=== PATIENT | female | born 2000 | race Caucasian/White ===

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

== ENCOUNTER 2021-05-28 14:58 | Emergency (ER) | payer OTHER ==
--- OUTSIDE RECORDS SUMMARY | 2021-05-28 15:01 | XMS REPORT | Continuity of Care Document ---
:2000 Author Organization [facility] t Address [address] [place] [address] Care Team Providers Name Role Phone Laura Morales Attending Clinician Unavailable Physician, Primary or Family Admitting Clinician Unavailabl e Payers Payer Name Policy Type Policy Number Effective Date Expiration Date S ource Problems This patient has no known problems. Allergies, Adverse Reactions, Alerts Allergy Allergy Status Severity Reaction(s) Onset Inactive Treating Comm ents Source Name Type Date Date Clinician No Known DA Active U [facility] Allergie 11-16 [facility] 00:00: [address] No Known DA Active U [facility] Allergie 11-16 [facility] 00:00: [address] Medications This patient has no known medications. Procedures This patient has no known procedures. Encounters Start End Encounter Admission Attending Care Care Encounter Source Date/Time Date/Time Type Type Clinicians Facility Department ID 2020-11-16 2020-11-17 Emergency EM Andrew [facility] ER [id number] 2-2 [facility] 22:23:00 01:34:00 [place] [id number] [facility] Results Test Description Test Time Test Comments Results Result Comments Source DRUG OF ABUSE SCREEN URINE 2020-11-17 00:50:00 Test Item Value Reference Range Interpretation Comme nts UR COCAINE (test code = NEGATIVE NEGATIVE COCAU) UR MDMA (test code = MDMAQLU) NEGATIVE NEGATIVE UR CANNABINOIDS (test code = POSITIVE NEGATIVE A If confirmatory testing required, CANU) contact laborat ory. UR AMPHETAMINE (test code = POSITIVE NEGATIVE A If confirmatory testing required, AMPHU) contact laborat ory. UR BARBITURATE QUAL (test NEGATIVE NEGATIVE code = BARBQLU) UR BENZODIAZEPINE (test code NEGATIVE NEGATIVE = BENZU) UR OPIATES QUAL (test code = NEGATIVE NEGATIVE OPIAQLU) UR PHENCYCLIDINE (PCP) (test NEGATIVE NEGATIVE Urine Drug Abuse Screen provides code = PHENCU) preliminary r esults thatmay be confirmed by arlen colon methods (i.e., GC/MS) a t areference laboratory. Re sults of screen may not be usedin c riminal justice, job performance or professionalcre dential review, or custody issues. N egative [place] Level ng/ml ------- ----- Cocaine 3 00 Methamp hetamine (Ecstacy) 500 Cannabinoids (T HC) 50 Amphetamine 100 0 Barbitur ates 200 Benzodiazepines 200 Opiates 30 0 Phencycl idine (PCP) 25 UA RFLX MICROSCOPIC [id number] 00:39:00 Test Item Value Reference Range Interpretation Comments UA COLOR (test code = COLU) Yellow YELLOW UA APPEARANCE (test code = Ex.Turbid CLEAR APPU) UA GLUCOSE DIPSTICK (test NORMAL mg/dL NEGATIVE code = DGLUU) UA BILIRUBIN DIPSTICK (test NEGATIVE NEGATIVE code = BILU) UA KETONE DIPSTICK (test TRACE mg/dL NEGATIVE code = KETU) UA SPECIFIC GRAVITY (test 1.030 1.001-1.035 N code = SGU) UA BLOOD DIPSTICK (test code 2+ NEGATIVE A = LASHON) UA PH DIPSTICK (test code = 6.5 5.5-7.0 N CARRILLO) UA PROTEIN DIPSTICK (test 70 mg/dL NEGATIVE A code = PROU) UA UROBILINOGEN DIPSTICK 3 mg/dL NORMAL A (test code = URO) UA NITRITE DIPSTICK (test 2+ NEGATIVE A code = ANDREW) UA LEUKOCYTE ESTERASE 2+ NEGATIVE A DIPSTICK (test code = LEUU) UA COMMENT (test code = VOLUME 10-12 ML COMU) URINE SPECIMEN DESCRIPTION Clean Catch (test code = UASPEC) UA WBC (test code = WBCU) > 50 #/HPF 0-10 A UA SQUAMOUS CELLS (test code > 100 #/LPF <100 A = SQU) UA CULTURE NEEDED? (test Criteria not met code = UACULT) Indication for culture: Suprapubic PainURINE SOURCE: Clean CatchUA [id number] 00:39:00 Test Item Value Reference Range Interpretation Comments UA RBC (test code = RBCU) >50 #/HPF NONE SEEN A UA BACTERIA (test code = BACU) 1+ HPF NONE SEEN UA MUCUS (test code = MUCU) 3+ #/lpf NONE SEEN Indication for culture: Suprapubic PainURINE SOURCE: Clean CatchUA RFLX MICROSCOPIC [id number] 00:37:00 Test Item Value Reference Range Interpretation Comments UA COLOR (test code = COLU) Yellow YELLOW UA APPEARANCE (test code = Ex.Turbid CLEAR APPU) UA GLUCOSE DIPSTICK (test NORMAL mg/dL NEGATIVE code = DGLUU) UA BILIRUBIN DIPSTICK (test NEGATIVE NEGATIVE code = BILU) UA KETONE DIPSTICK (test code TRACE mg/dL NEGATIVE = KETU) UA SPECIFIC GRAVITY (test 1.030 1.001-1.035 N code = SGU) UA BLOOD DIPSTICK (test code 2+ NEGATIVE A = LASHON) UA PH DIPSTICK (test code = 6.5 5.5-7.0 N CARRILLO) UA PROTEIN DIPSTICK (test 70 mg/dL NEGATIVE A code = PROU) UA UROBILINOGEN DIPSTICK 3 mg/dL NORMAL A (test code = URO) UA NITRITE DIPSTICK (test 2+ NEGATIVE A code = ANDREW) UA LEUKOCYTE ESTERASE 2+ NEGATIVE A DIPSTICK (test code = LEUU) UA COMMENT (test code = COMU) VOLUME 10-12 ML URINE SPECIMEN DESCRIPTION Clean Catch (test code = UASPEC) UA WBC (test code = WBCU) #/hpf <10 UA SQUAMOUS CELLS (test code #/lpf <100 = SQU) UA CULTURE NEEDED? (test code = UACULT) Indication for culture: Suprapubic PainURINE SOURCE: Clean CatchUA [id number] 00:37:00 Test Item Value Reference Range Interpretation Comments UA RBC (test code = RBCU) #/HPF NONE SEEN Indication for culture: Suprapubic PainURINE SOURCE: Clean CatchUA RFLX MICROSCOPIC [id number] 00:37:00 Test Item Value Reference Range Interpretation Comments UA COLOR (test code = COLU) Yellow YELLOW UA APPEARANCE (test code = Ex.Turbid CLEAR APPU) UA GLUCOSE DIPSTICK (test NORMAL mg/dL NEGATIVE code = DGLUU) UA BILIRUBIN DIPSTICK (test NEGATIVE NEGATIVE code = BILU) UA KETONE DIPSTICK (test code TRACE mg/dL NEGATIVE = KETU) UA SPECIFIC GRAVITY (test 1.030 1.001-1.035 N code = SGU) UA BLOOD DIPSTICK (test code 2+ NEGATIVE A = LASHON) UA PH DIPSTICK (test code = 6.5 5.5-7.0 N CARRILLO) UA PROTEIN DIPSTICK (test 70 mg/dL NEGATIVE A code = PROU) UA UROBILINOGEN DIPSTICK 3 mg/dL NORMAL A (test code = URO) UA NITRITE DIPSTICK (test 2+ NEGATIVE A code = ANDREW) UA LEUKOCYTE ESTERASE 2+ NEGATIVE A DIPSTICK (test code = LEUU) UA COMMENT (test code = COMU) VOLUME 10-12 ML URINE SPECIMEN DESCRIPTION Clean Catch (test code = UASPEC) UA WBC (test code = WBCU) #/hpf <10 UA SQUAMOUS CELLS (test code #/lpf <100 = SQU) UA CULTURE NEEDED? (test code = UACULT) Indication for culture: Suprapubic PainURINE SOURCE: Clean CatchUA [id number] 00:37:00 Test Item Value Reference Range Interpretation Comments UA RBC (test code = RBCU) #/HPF NONE SEEN Indication for culture: Suprapubic PainURINE SOURCE: Clean CatchBASIC METABOLIC [id number] 23:30:00 Test Item Value Reference Range Interpretation Comments SODIUM (test code = 138 MMOL/L 133-145 N NA) POTASSIUM (test 3.5 MMOL/L 3.6-5.2 L code = K) CHLORIDE (test code 99 MMOL/L 100-108 L = CL) CARBON DIOXIDE 31 MMOL/L 22-32 N (test code = CO2) GLUCOSE (test code 106 MG/DL 65-99 H Results o f this = GLU) assay method ma y be falsely depressed orelevated if patient is taki ng sulfasalazine. BLOOD UREA NITROGEN 14 MG/DL 6-20 N (test code = BUN) GLOMERULAR Unable to 71-165 N Unable to FILTRATION RATE calculate calculate eG FR; no (test code = GFR) race enter ed to medical record.Reportin g units: mL/min/1.73m\S\ 2 (Modified MDRD Formula) CREATININE (test 0.70 MG/DL 0.60-1.00 N code = CREAT) CALCIUM (test code 9.0 MG/DL 8.7-10.5 N = CA) HEPATIC FUNCTION [id number] 23:30:00 Test Item Value Reference Range Interpretation Comments TOTAL PROTEIN (test 8.5 G/DL 6.4-8.2 H code = PROT) ALBUMIN (test code = 3.1 G/DL 3.4-5.0 L ALB) GLOBULIN (test code = 5.4 G/DL 1.5-3.8 H GLOB) ALBUMIN/GLOBULIN RATIO 0.6 1.1-2.2 L (test code = A/G) BILIRUBIN TOTAL (test 0.2 MG/DL 0.0-1.0 N code = BILT) BILIRUBIN DIRECT (test 0.1 MG/DL 0.0-0.3 N code = BILD) BILIRUBIN INDIRECT 0.1 MG/DL 0.0-0.7 N (test code = BILIND) SGOT/AST (test code = 45 Units/L 15-37 H Result s of this AST) assay method ma y be falsely depress ed orelevated if patient is taki ng sulfasalazine. SGPT/ALT (test code = 83 Units/L 30-65 H Result s of this ALT) assay method ma y be falsely depress ed orelevated if patient is taki ng sulfasalazine. ALKALINE PHOSPHATASE 164 Units/L 50-136 H TOTAL (test code = ALKP) [id number] 23:30:00 Test Item Value Reference Range Interpretation Comments LIPASE (test code = LIP) 87 Units/L 73-393 N HCG SERUM [id number] 23:09:00 Test Item Value Reference Range Interpretation Comments HCG SERUM QUAL NEGATIVE NEGATIVE False negativ es may occur (test code = when levels of hCGare below HCGQL) 10 mIU/ml. When is still suspec leonel, a new specimenshould be obtained after 48 hours and re-tested.If wa iting 48 hours is not me dically advisable,the t est result should be confi rmed using aquantitative h CG assay. CBC W/AUTO [id number] 23:08:00 Test Item Value Reference Range Interpretation Comments WHITE BLOOD CELL (test 15.74 x10 3/uL 4.80-10.80 H Res ults called to code = WBC) and read back Yina SOMMER;4838, 11/16/20, D.[id number].JP1. RED BLOOD CELL (test 4.58 x10 6/uL 4.2-5.4 N code = RBC) HEMOGLOBIN (test code = 12.9 G/DL 12.0-16.0 N HGB) HEMATOCRIT (test code = 40.2 % 37-47 N HCT) MEAN CELL VOLUME (test 87.8 FL 81-99 N code = MCV) MEAN CELL HGB (test 28.2 PG 27-31 N code = MCH) MEAN CELL HGB 32.1 G/DL 33-37 L CONCENTRATION (test code = MCHC) RED CELL DISTRIBUTION 13.3 % 11.5-14.5 N WIDTH (test code = RDW) PLATELET COUNT (test 442 x10 3/uL 150-450 N code = PLT) MEAN PLATELET VOLUME 8.6 FL 7.4-10.4 N (test code = MPV) NEUTROPHIL % (test code 73.0 % 42-86 N = NT%) IMMATURE GRANULOCYTE % 0.4 % 0.0-2.0 N (test code = IG%) LYMPHOCYTE % (test code 18.0 % 24-44 L = LY%) MONOCYTE % (test code = 6.6 % 0.0-4.0 H MO%) EOSINOPHIL % (test code 1.6 % 0.0-2.7 N = EO%) BASOPHIL % (test code = 0.4 % 0.0-0.5 N BA%) NUCLEATED RBC % (test 0.0 % 0.0-0.0 N code = NRBC%) NEUTROPHIL # (test code 11.47 x10 3/uL 1.8-7.7 H = NT#) IMMATURE GRANULOCYTE # 0.07 x10 3/uL 0.00-0.03 H (test code = IG#) LYMPHOCYTE # (test code 2.84 x10 3/uL 1.0-4.8 N = LY#) MONOCYTE # (test code = 1.04 x10 3/uL 0.0-0.8 H MO#) EOSINOPHIL # (test code 0.25 x10 3/uL 0.0-0.5 N = EO#) BASOPHIL # (test code = 0.07 x10 3/uL 0.0-0.2 N BA#) NUCLEATED RBC # (test 0.0 X10 3/uL 0.0-0.2 N code = NRBC#)
--- NOTE | 2021-05-28 15:53 | ER ---
Nurse's Notes [facility] Name: Arvin Flor Age: 20 yrs Sex: Female : 2000 Arrival Date: 05/28/2021 Time: 15:00 Bed 12 Private MD: Diagnosis: Encounter for screening for infections with a predominantly sexual mode of transmission Presentation: 05/28 15:18 Chief complaint: Patient states: "My boyfriend thinks I have an STD and I'm here so I vg1 can get proof that I dont" Denies vaginal pain, itching, or discharge. Coronavirus screen: Vaccine status: Patient reports being unvaccinated. Client denies travel out of the [place] in the last 14 days. At this time, the client does not indicate any symptoms associated with coronavirus-19. Ebola Screen: Patient negative for fever greater than or equal to 101.5 degrees Fahrenheit, and additional compatible Ebola Virus Disease symptoms. Initial Sepsis Screen: Does the patient meet any 2 criteria? No. Patient's initial sepsis screen is negative. Does the patient have a suspected source of infection? No. Patient's initial sepsis screen is negative. Risk Assessment: Do you want to hurt yourself or someone else? Patient reports no desire to harm self or others. Onset of symptoms was May 28, 2021. 15:18 Method Of Arrival: Ambulatory vg1 15:18 Acuity: MARIPOSA 4 vg1 Triage Assessment: 15:21 General: Appears in no apparent distress. comfortable, Behavior is calm, cooperative. vg1 Pain: Denies pain. : Denies pain vaginal itching. 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 - Social history:: Smoking status: Patient reports the use of cigarette tobacco products, smokes one-half pack cigarettes per day, Patient uses street drugs, Methamphetamine (Meth) states last time was 'about 3-4 months ago'. Screenin:50 Abuse screen: Denies threats or abuse. Denies injuries from another. Nutritional iw screening: No deficits noted. Tuberculosis screening: No symptoms or risk factors identified. Fall Risk None identified. Assessment: 15:40 General: Appears in no apparent distress. Behavior is calm, cooperative. Pain: Denies iw pain. Neuro: Level of Consciousness is awake, alert, obeys commands, Oriented to person, place, time, situation, Moves all extremities. Full function. : No signs and/or symptoms were reported regarding the genitourinary system. Vital Signs: 15:18 BP 125 / 72; Pulse 98; Resp 16; Temp 98.1; Pulse Ox 99% ; Weight 56.7 kg; Height 5 ft. vg1 3 in. (160.02 cm); Pain 0/10; 15:18 Body Mass Index 22.14 (56.70 kg, 160.02 cm) vg1 ED Course: 15:00 Patient arrived in ED. as 15:21 Triage completed. vg1 15:21 Arm band placed on. vg1 15:39 Jana Singh, RN is Primary Nurse. iw 15:[address] PA is PHCP. cp 15:40 Cheyenne Nathan MD is Attending Physician. cp 15:40 Patient has correct armband on for positive identification. iw 15:52 No provider procedures requiring assistance completed. Patient did not have IV access iw during this emergency room visit. Administered Medications: No medications were administered Outcome: 15:50 Medical screen evaluation completed per provider. Patient declined treatment. iw 15:53 Discharge ordered by MD. cp 15:53 Condition: unchanged iw 15:53 Following a medical screening exam, the patient was provided information regarding alternative care sites and resources available per registration personnel. 16:03 Patient left the ED. cp Signatures: Frances Thompson as Jana Singh, RN RN iw Marlon Lane PA PA cp Garcia, Victoria, RN RN vg1 Corrections: (The following items were deleted from the chart) 15:22 15:21 Home Meds: aspirin 81 mg Oral chew 1 tab as needed; vg1 vg1
--- NOTE | 2021-05-28 15:53 | EDPHYS ---
Physician Documentation [facility] Name: Arvin Flor Age: 20 yrs Sex: Female : 2000 Arrival Date: 05/28/2021 Time: 15:00 Bed 12 Private MD: ED Physician Cheyenne Nathan HPI: 05/28 15:45 This 20 yrs old Female presents to ER via Ambulatory with complaints of STD Exposure. cp 15:45 Patient presents to the emergency department with request to be tested for STDs. cp Patient reports boyfriend wants her to be tested for STDs. Patient denies any current symptoms. Patient denies any urinary symptoms.. 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 - Social history:: Smoking status: Patient reports the use of cigarette tobacco products, smokes one-half pack cigarettes per day, Patient uses street drugs, Methamphetamine (Meth) states last time was 'about 3-4 months ago'. ROS: 15:51 All other systems are negative. cp Exam: 15:51 Constitutional: The patient appears in no acute distress, alert, awake, comfortable, cp well developed, well nourished. 15:51 Cardiovascular: Rate: normal. 15:51 Abdomen/GI: Exam negative for discomfort, distension, guarding, Inspection: abdomen cp appears normal. Vital Signs: 15:18 BP 125 / 72; Pulse 98; Resp 16; Temp 98.1; Pulse Ox 99% ; Weight 56.7 kg; Height 5 ft. vg1 3 in. (160.02 cm); Pain 0/10; 15:18 Body Mass Index 22.14 (56.70 kg, 160.02 cm) vg1 MDM: 15:53 Patient medically screened. cp 15:53 Data reviewed: vital signs, nurses notes. cp 15:53 Counseling: I had a detailed discussion with the patient and/or guardian regarding: the cp need for outpatient follow up, for definitive care, a family practitioner. Administered Medications: No medications were administered Disposition: 16:00 Chart complete. cp 18:11 Co-signature as Attending Physician, Cheyenne Nathan MD. ma2 18:12 PA/EAR NOSE THROAT PHYSICIAN's history reviewed, patient interviewed, and examined. I agree with assessment ma2 and care plan and confirm the diagnosis (es) above. Disposition Summary: 05/28/21 15:53 Discharge Ordered Location: Home as Medical Screen cp Problem: new cp Symptoms: are unchanged cp Condition: Stable cp Diagnosis - Encounter for screening for infections with a predominantly sexual mode of cp transmission Followup: cp - With: Private Physician - When: 1 - 2 days - Reason: Recheck today's complaints Discharge Instructions: - Discharge Summary Sheet cp - Health Maintenance, Female cp Forms: - Medication Reconciliation Form cp - Thank You Letter cp - Antibiotic Education cp - Prescription Opioid Use cp Signatures: Marlon Lane, ALISON PA cp Cheyenne Nathan MD MD ma2 Coty Link RN RN vg1 Corrections: (The following items were deleted from the chart) 15:22 15:21 Home Meds: aspirin 81 mg Oral chew 1 tab as needed; vg1 vg1
[2021-05-28 16:10] VITALS: BP 125/72; TEMP 98.1; O2SAT 99
== END 2021-05-28 16:03 | disposition home or self-care (01) ==
LOC: ER 14:58
DX: Z11.3 Encounter for screening for infections with a predominantly sexual mode of transmission (principal)
CPT/HCPCS: 99281

== ENCOUNTER 2023-03-21 11:01 | Emergency (ER) | payer OTHER ==
--- OUTSIDE RECORDS SUMMARY | 2023-03-21 11:04 | XMS REPORT | Continuity of Care Document ---
:2000 Author Organization [facility] t Address [address] [place] [address] [address] [place] [address] Care Team Providers Name Role Phone Beto Morales Attending Clinician Unavailable Physician, No Primary or Family Admitting Clinician Unavaila ble Payers Payer Name Policy Type Policy Number Effective Date Expiration Date S ource Problems This patient has no known problems. Allergies, Adverse Reactions, Alerts Allergy Allergy Status Severity Reaction(s) Onset Inactive Treating Comm ents Source Name Type Date Date Clinician No Known DA Active U [facility] Allergie 11-16 [facility] 00:00: [address] No Known DA Active U [facility] Allergie 11-16 [facility] 00:00: [address] Medications This patient has no known medications. Procedures This patient has no known procedures. Encounters Start End Encounter Admission Attending Care Care Encounter Source Date/Time Date/Time Type Type Clinicians Facility Department ID 2020-11-16 2020-11-17 Emergency EM LISA Morales ER [id number] 22:23:00 01:34:00 Beto Nava [facility] Results Test Description Test Time Test Comments [...] methods (i.e., GC/MS) a t areference laboratory. Res ults of screen may not be usedin c riminal justice, job performance or professionalcre dential review, or custody issues. Negative [place] Level ng/ml ------- ----- Cocaine 300 Methampheta mine (Ecstacy) 500 Cannabinoids (T HC) 50 Amphetamine 1000 Barbiturat es 200 Benzodiazepines 200 Opiates 300 Phencyclidine ( PCP) 25 UA RFLX MICROSCOPIC [id number] 00:39:00 Test Item Value Reference Range Interpretation [...] for culture: Suprapubic PainURINE SOURCE: Clean CatchUA MICROSCOPIC 2020-11-17 00:39:00 Test Item Value Reference Range Interpretation Comments UA RBC (test code = RBCU) >50 #/HPF NONE SEEN A UA BACTERIA (test code = BACU) 1+ HPF NONE SEEN UA MUCUS (test code = MUCU) 3+ #/lpf NONE SEEN Indication for culture: Suprapubic PainURINE SOURCE: Clean CatchUA RFLX MICROSCOPIC [id number] 00:37:00 Test Item Value Reference Range Interpretation [...] for culture: Suprapubic PainURINE SOURCE: Clean CatchUA MICROSCOPIC 2020-11-17 00:37:00 Test Item Value Reference Range Interpretation Comments UA RBC (test code = RBCU) #/HPF NONE SEEN Indication for culture: Suprapubic PainURINE SOURCE: Clean CatchUA RFLX MICROSCOPIC [id number] 00:37:00 Test Item Value Reference Range Interpretation [...] for culture: Suprapubic PainURINE SOURCE: Clean CatchUA MICROSCOPIC 2020-11-17 00:37:00 Test Item Value Reference Range Interpretation Comments UA RBC (test code = RBCU) #/HPF NONE SEEN Indication for culture: Suprapubic PainURINE SOURCE: Clean CatchBASIC METABOLIC [id number] 23:30:00 Test Item Value Reference Range Interpretation [...] MG/DL 8.7-10.5 N = CA) HEPATIC FUNCTION [id number] 23:30:00 Test Item Value Reference Range Interpretation [...] 50-136 H TOTAL (test code = ALKP) [id number] 23:30:00 Test Item Value Reference Range Interpretation Comments LIPASE (test code = LIP) 87 Units/L 73-393 N HCG SERUM [id number] 23:09:00 Test Item Value Reference Range Interpretation [...] using aquantitative h CG assay. CBC W/AUTO [id number] 23:08:00 Test Item Value Reference Range Interpretation Comments WHITE BLOOD CELL (test 15.74 x10 3/uL 4.80-10.80 H Res ults called to code = WBC) and read back Yina SOMMER;2308, 11/16/20, [id number].[id number]. RED BLOOD CELL (test 4.58 [...]
--- NOTE | 2023-03-21 11:13 | ER ---
Nurse's Notes [facility] Name: Arvin Flor Age: 22 yrs Sex: Female : 2000 Arrival Date: 03/21/2023 Time: 11:01 Bed IW1 Private MD: Diagnosis: Local infection of the skin and subcutaneous tissue, unspecified Presentation: 03/21 11:09 Chief complaint: Patient states: Sore's to arms, legs, face for 2 weeks. Coronavirus ld1 screen: At this time, the client does not indicate any symptoms associated with coronavirus-19. Ebola Screen: No symptoms or risks identified at this time. Initial Sepsis Screen: Does the patient meet any 2 criteria? No. Patient's initial sepsis screen is negative. Does the patient have a suspected source of infection? No. Patient's initial sepsis screen is negative. Risk Assessment: Do you want to hurt yourself or someone else? Patient reports no desire to harm self or others. Onset of symptoms was March 21, 2023. 11:09 Method Of Arrival: Ambulatory ld1 11:09 Acuity: MARIPOSA 4 ld1 Triage Assessment: 11:10 General: Appears in no apparent distress. comfortable, Behavior is calm, cooperative, ld1 appropriate for age. Pain: Denies pain. EENT: No signs and/or symptoms were reported regarding the EENT system. Neuro: Level of Consciousness is awake, alert, obeys commands, Oriented to person, place, time, situation. Cardiovascular: Capillary refill < 3 seconds Patient's skin is warm and dry. Respiratory: Airway is patent Respiratory effort is even, unlabored. GI: Abdomen is flat, non-distended. : No signs and/or symptoms were reported regarding the genitourinary system. Derm: Wound noted face, back, right hand, left hand, right arm, left arm, right leg and left leg. Musculoskeletal: No signs and/or symptoms reported regarding the musculoskeletal system. 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 - Social history:: Smoking status: Patient denies any tobacco usage or history of. Patient/guardian denies using alcohol. Screenin:11 [facility] ED Fall Risk Assessment (Adult) History of falling in the last 3 months, ld1 including since admission No falls in past 3 months (0 pts). Abuse screen: Denies threats or abuse. Denies injuries from another. Nutritional screening: No deficits noted. Tuberculosis screening: No symptoms or risk factors identified. Assessment: 11:11 Reassessment: See triage assessment. ERP in triage assessing patient. Pt reports being ld1 . Vital Signs: 11:09 BP 142 / 89; Pulse 92; Resp 18; Temp 98.3(O); Pulse Ox 100% on R/A; Weight 48.08 kg; ld1 Height 5 ft. 3 in. ; Pain 0/10; 11:09 Body Mass Index 18.78 (48.08 kg, 160.02 cm) ld1 11:09 Pain Scale: Adult 1 ED Course: 11:06 Patient arrived in ED. 5 11:06 [facility] 11:06 Marlon Coker MD is Attending Physician. [facility] 11:10 Triage completed. ld1 11:10 Arm band placed on right wrist. ld1 11:11 Patient has correct armband on for positive identification. Call light in reach. Pulse ld1 ox on. NIBP on. Door closed. Noise minimized. Warm blanket given. 11:11 No provider procedures requiring assistance completed. Patient did not have IV access ld1 during this emergency room visit. 11:18 Nadeen Romero, LEEROY is Primary Nurse. ld1 Administered Medications: No medications were administered Medication: 11:11 VIS not applicable for this client. ld1 Outcome: 11:12 Discharge ordered by . [facility] 11:18 Discharged to home ambulatory, ld1 11:18 Condition: stable 11:18 Discharge instructions given to patient, Instructed on discharge instructions, follow up and referral plans. medication usage, Demonstrated understanding of instructions, follow-up care, medications, Prescriptions given X 2, 11:18 Patient left the ED. ld1 Signatures: Nadeen Romero RN RN ld1 Vane Faria FNP FNP [facility] Frieda Swanson mg5
--- NOTE | 2023-03-21 11:13 | EDPHYS ---
Physician Documentation [facility] Name: Arvin Flor Age: 22 yrs Sex: Female : 2000 Arrival Date: 03/21/2023 Time: 11:01 Bed IW1 Private MD: ED Physician Marlon Coker HPI: 03/21 11:10 This 22 yrs old Female presents to ER via Ambulatory with complaints of Face/Hands/Legs jh7 infection. 11:10 Onset: The symptoms/episode began/occurred 2 week(s) ago. Associated signs and jh7 symptoms: Pertinent negatives: abdominal pain, chest pain, dysuria, fever, shortness of breath, sore throat, vomiting. 22-year-old female presents for possible staph infection. Reports that she is noticed red, scab-like lesions on her face, arms, back, and legs. Denies any past medical history but states that she is 8 weeks .. 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 - Social history:: Smoking status: Patient denies any tobacco usage or history of. Patient/guardian denies using alcohol. ROS: 11:10 Constitutional: Negative for fever, chills, and weight loss, Eyes: Negative for injury, jh7 pain, redness, and discharge, Neck: Negative for injury, pain, and swelling, Cardiovascular: Negative for chest pain, palpitations, and edema, Respiratory: Negative for shortness of breath, cough, wheezing, and pleuritic chest pain, Abdomen/GI: Negative for abdominal pain, nausea, vomiting, diarrhea, and constipation, Back: Negative for injury and pain, MS/Extremity: Negative for injury and deformity, Neuro: Negative for headache, weakness, numbness, tingling, and seizure, 11:10 Skin: Positive for cellulitis, 11:10 All other systems are negative, Exam: 11:10 Constitutional: This is a well developed, well nourished patient who is awake, alert, jh7 and in no acute distress. Head/Face: Normocephalic, atraumatic. Eyes: Pupils equal round and reactive to light, extra-ocular motions intact. Lids and lashes normal. Conjunctiva and sclera are non-icteric and not injected. Cornea within normal limits. Periorbital areas with no swelling, redness, or edema. Cardiovascular: Regular rate and rhythm with a normal S1 and S2. No gallops, murmurs, or rubs. Normal PMI, no JVD. No pulse deficits. Respiratory: Lungs have equal breath sounds bilaterally, clear to auscultation and percussion. No rales, rhonchi or wheezes noted. No increased work of breathing, no retractions or nasal flaring. MS/ Extremity: Pulses equal, no cyanosis. Neurovascular intact. Full, normal range of motion. Neuro: Awake and alert, GCS 15, oriented to person, place, time, and situation. Motor strength 5/5 in all extremities. Sensory grossly intact. Normal gait. 11:10 Skin: abscess, that is small, approximately 1 cm(s), with induration, Many small, abscesses/areas of cellulitis, on arms, face, back, and legs. There is no fluctuance but areas are indurated and tender to palpation., Vital Signs: 11:09 BP 142 / 89; Pulse 92; Resp 18; Temp 98.3(O); Pulse Ox 100% on R/A; Weight 48.08 kg; ld1 Height 5 ft. 3 in. ; Pain 0/10; 11:09 Body Mass Index 18.78 (48.08 kg, 160.02 cm) ld1 11:09 Pain Scale: Adult ld1 MDM: 11:06 Patient medically screened. [facility] 11:10 Differential diagnosis: Abscess, staph infection, cellulitis. Data reviewed: vital [facility] signs, nurses notes. Care significantly affected by the following chronic conditions: Suspected IV drug use with possible "skin popping". Counseling: I had a detailed discussion with the patient and/or guardian regarding the historical points, exam findings, and any diagnostic results supporting the discharge/admit diagnosis, to return to the emergency department if symptoms worsen or persist or if there are any questions or concerns that arise at home. ED course: Clindamycin prescribed rather than Bactrim due to the patient being 8 weeks .. Administered Medications: No medications were administered Disposition Summary: 10/05/23 11:12 Discharge Ordered Notes: Location: Home [facility] Problem: new [facility] Symptoms: are unchanged [facility] Condition: Stable [facility] Diagnosis - Local infection of the skin and subcutaneous tissue, unspecified [facility] Followup: [facility] - With: Private Physician - When: 2 - 3 days - Reason: Recheck today's complaints Discharge Instructions: - Discharge Summary Sheet [facility] - Cellulitis, Adult [facility] Forms: - Medication Reconciliation Form [facility] - Thank You Letter [facility] - Antibiotic Education [facility] - Patient Portal Instructions [facility] - Leadership Thank You Letter [facility] Prescriptions: - mupirocin 2 % Topical ointment - apply 1 application TOPICAL route 3 times per day for 7 days; 30 gram; Refills: [facility] 0, Product Selection Permitted - Clindamycin HCl 300 mg Oral Capsule - take 1 capsule ORAL route every 6 hours for 10 days; 40 capsule; Refills: 0, jh7 Product Selection Permitted Signatures: Nadeen Romero RN RN ld1 Vane Faria FNP PASTOR [facility]
[2023-03-21 11:23] VITALS: BP 142/89; TEMP 98.3; O2SAT 100
== END 2023-03-21 11:18 | disposition home or self-care (01) ==
LOC: ER 11:01
DX: O99.711 Diseases of the skin and subcutaneous tissue complicating pregnancy, first trimester (principal); L03.818 Cellulitis of other sites; Z3A.08 8 weeks gestation of pregnancy
CPT/HCPCS: 99283

== ENCOUNTER → 2023-06-25 | Emergency (ER) | payer OTHER ==
--- OUTSIDE RECORDS SUMMARY | 2023-06-25 11:36 | XMS REPORT | Continuity of Care Document ---
Author Name Unknown Address [address] [place] [address] [address] [employer] Address [address] [place] [address]. [address] [place] [address] Care Team Providers Care [employer] Name Role Phone MATTHEW RAPHAEL Primary Care Physician COURTNEY Gutierres Attending Clinician Unavaila ble Allergies, Adverse Reactions, Alerts Allergy Name Allergy Type Status Severity Reaction(s) Onset Date Inactive Date Treating Clinician Comments Source NO KNOWN ALLERGIE S Drug Class Active [facility] Encounters Start Date/Time End Date/Time Encounter Type Admission Type Attending Clinicians Care Facility Care Department Encounter ID Source 2023-04-16 13:45:00 2023-04-16 13:45:00 Outpatient COURTNEY GARCIA [facility] [id number] [facility]
[2023-06-25 12:20] LABS: Transitional Epithelial <5 /HPF (None Seen); Urine Bacteria 20-50 /HPF (<20); Urine Bilirubin NEGATIVE (Negative); Urine Blood Negative (Negative); Urine Clarity Clear (Clear); Urine Color Yellow (Yellow); Urine Glucose NEGATIVE (Negative); Urine Mucus Slight /HPF (None Seen); Urine Protein TRACE (Negative); Urine Urobilinogen 1+ (Normal)
--- NOTE | 2023-06-25 12:51 | ER ---
Nurse's Notes [facility] Name: Arvin Flor Age: 22 yrs Sex: Female : 2000 Arrival Date: 06/25/2023 Time: 11:33 Bed IW1 Private MD: Diagnosis: Encounter for test, result positive;UTI/ Urinary tract infection, site not specified Presentation: 06/25 11:48 Chief complaint: Patient states: Positive test in January. Needs proof of ll1 for insurance reasons. G3, P1. No pain or bleeding. Coronavirus screen: Client denies travel out of the [place] in the last 14 days. At this time, the client does not indicate any symptoms associated with coronavirus-19. Ebola Screen: Patient denies travel to an Ebola-affected area in the 21 days before illness onset. Initial Sepsis Screen: Does the patient meet any 2 criteria? No. Patient's initial sepsis screen is negative. Does the patient have a suspected source of infection? No. Patient's initial sepsis screen is negative. Risk Assessment: Do you want to hurt yourself or someone else? Patient reports no desire to harm self or others. Onset of symptoms was January 15, 2023. 11:48 Method Of Arrival: Ambulatory ll1 11:48 Acuity: MARIPOSA 4 ll1 Triage Assessment: 11:48 General: Appears in no apparent distress. Behavior is calm, cooperative, appropriate ll1 for age, Reports needing confirmation. Pain: Denies pain. GI: No deficits noted. Historical: - Allergies: 11:45 No Known Allergies; ll1 - PMHx: 11:45 None; ll1 - PSHx: 11:45 Cholecystectomy; ll1 - Immunization history:: Adult Immunizations up to date. - Social history:: Smoking status: Patient denies any tobacco usage or history of. Screenin:10 [facility] ED Fall Risk Assessment (Adult) Score/Fall Risk Level 0 - 2 = Low Risk ll1 Oriented to surroundings, Maintained a safe environment, Educated pt \T\ family on fall prevention, incl call for assistance when getting out of bed, Hourly rounding (assess needs \T\ fall precautionary measures) done. Abuse screen: Denies threats or abuse. Nutritional screening: No deficits noted. Tuberculosis screening: No symptoms or risk factors identified. Assessment: 13:09 Reassessment: No changes from previously documented assessment. Patient and/or family ll1 updated on plan of care and expected duration. Pain level reassessed. Patient is alert, oriented x 3, equal unlabored respirations, skin warm/dry/pink. Vital Signs: 11:48 BP 135 / 67; Pulse 84; Resp 16; Temp 97.6; Pulse Ox 100% ; Pain 0/10; ll1 11:48 Pain Scale: Adult ll1 ED Course: 11:34 Patient arrived in ED. rg4 11:42 Ivan Romero DO is Attending Physician. ms3 11:45 Arm band placed on. ll1 11:50 Triage completed. ll1 12:02 Test, Urine Sent. zm 12:02 Urinalysis w/ reflexes Sent. zm Administered Medications: No medications were administered Outcome: 12:50 Discharge ordered by MD. ms3 13:09 Discharged to home ambulatory, 1 13:09 Condition: stable 13:09 Discharge instructions given to patient, Instructed on discharge instructions, follow up and referral plans. medication usage, Demonstrated understanding of instructions, follow-up care, medications, Prescriptions given X 2, 13:10 Patient left the ED. 1 Signatures: Jenny Link rg4 John Schmitt RN RN 1 Ivan Romero DO DO ms3 Nedra Thompson
--- NOTE | 2023-06-25 12:51 | EDPHYS ---
Physician Documentation [facility] Name: Arvin Flor Age: 22 yrs Sex: Female : 2000 Arrival Date: 06/25/2023 Time: 11:33 Bed IW1 Private MD: ED Physician Ivan Romero HPI: 06/25 12:13 This 22 yrs old Female presents to ER via Ambulatory with complaints of Needs ms3 Test. 12:13 22-year-old female with no past medical history presents to the emergency department ms3 needing test. Patient states she has an appointment at [facility] next Saturday. Patient denies vaginal bleeding, abdominal pain. Historical: - Allergies: 11:45 No Known Allergies; ll1 - PMHx: 11:45 None; ll1 - PSHx: 11:45 Cholecystectomy; ll1 - Immunization history:: Adult Immunizations up to date. - Social history:: Smoking status: Patient denies any tobacco usage or history of. ROS: 12:13 Constitutional: Negative for fever, and chills. Cardiovascular: Negative for chest ms3 pain, and palpitations. Respiratory: Negative for shortness of breath, cough, wheezing, and pleuritic chest pain, Abdomen/GI: Negative for abdominal pain, nausea, vomiting, diarrhea, and constipation, MS/Extremity: Negative for injury and deformity, 12:13 : Positive for vaginal discharge, 12:13 All other systems are negative, Exam: 12:13 Constitutional: This is a well developed, well nourished patient who is awake, alert, ms3 and in no acute distress. Head/Face: Normocephalic, atraumatic. Neck: Trachea midline, no cervical lymphadenopathy. Supple, full range of motion without nuchal rigidity, or vertebral point tenderness. No Meningismus. Chest/axilla: Normal chest wall appearance and motion. Nontender with no deformity. Cardiovascular: Regular rate and rhythm with a normal S1 and S2. No gallops, murmurs, or rubs. Normal PMI, no JVD. No pulse deficits. Respiratory: Lungs have equal breath sounds bilaterally, clear to auscultation and percussion. No rales, rhonchi or wheezes noted. No increased work of breathing, no retractions or nasal flaring. Abdomen/GI: Soft, non-tender, with normal bowel sounds. No distension or tympany. No guarding or rebound. No evidence of tenderness throughout. MS/ Extremity: Pulses equal, no cyanosis. Neurovascular intact. Full, normal range of motion. Vital Signs: 11:48 BP 135 / 67; Pulse 84; Resp 16; Temp 97.6; Pulse Ox 100% ; Pain 0/10; ll1 11:48 Pain Scale: Adult ll1 MDM: 12:12 Patient medically screened. ms3 12:13 Differential Diagnosis versus UTI. ms3 12:50 Data reviewed: vital signs, nurses notes, lab test result(s), and as a result, I will ms3 discharge patient. Test considered but Not performed: Ultrasound Patient without abdominal pain, or vaginal bleeding. Care significantly affected by the following Social Determinants of Health: Poor access to healthcare and/or lack of insurance. Counseling: I had a detailed discussion with the patient and/or guardian regarding the historical points, exam findings, and any diagnostic results supporting the discharge/admit diagnosis, lab results, the need for outpatient follow up, to return to the emergency department if symptoms worsen or persist or if there are any questions or concerns that arise at home. Special discussion: I discussed with the patient/guardian in detail that at this point there is no indication for admission to the hospital. It is understood, however, that if the symptoms persist or worsen the patient needs to return immediately for re-evaluation. ED course: Discussed positive test and urinalysis showing UTI with patient. Patient to follow-up with [facility] obstetrics as scheduled on Saturday. All questions were answered. Return precautions discussed include vaginal bleeding, abdominal pain, worsening symptoms, or any other concerns. On reevaluation patient is alert and orient x 4, no apparent distress, nontoxic-appearing, ambulatory out of the emergency department to smoke. Discussed smoking cessation with the patient during .. 12:50 Counseling: I had a detailed discussion with the patient and/or guardian regarding ms3 smoking cessation. 06/25 11:42 Order name: Test, Urine; Complete Time: 12:30 ms3 06/25 11:42 Order name: Urinalysis w/ reflexes; Complete Time: 12:30 ms3 Administered Medications: No medications were administered Disposition Summary: 06/25/23 12:50 Discharge Ordered Notes: Location: Home ms3 Condition: Stable ms3 Diagnosis - Encounter for test, result positive ms3 - UTI/ Urinary tract infection, site not specified ms3 Followup: ms3 - With: Private Physician - When: 1 - 2 days - Reason: Recheck today's complaints Discharge Instructions: - Discharge Summary Sheet ms3 - Urinary Tract Infection, Adult ms3 - and Smoking ms3 Forms: - Medication Reconciliation Form ms3 - Thank You Letter ms3 - Antibiotic Education ms3 - Prescription Opioid Use ms3 - Patient Portal Instructions ms3 - Leadership Thank You Letter ms3 Prescriptions: - Vitamin - take 1 tablet ORAL route daily; 30 tablet; Refills: 0, Product Selection ms3 Permitted - Macrobid 100 mg Oral Capsule - take 1 capsule ORAL route every 12 hours for 7 days; 14 capsule; Refills: 0, ms3 Product Selection Permitted Signatures: Dispatcher [employer] John Hilario RN RN ll1 Ivan Romero DO DO ms3
[2023-06-25 13:30] VITALS: BP 135/67; TEMP 97.6; O2SAT 100
== END ==
LOC: ER 11:33
DX: Z32.01 Encounter for pregnancy test, result positive (principal); N39.0 Urinary tract infection, site not specified
CPT/HCPCS: 81001; 81025; 99283